=== PATIENT | male | born 1990 | race Caucasian/White ===

== ENCOUNTER 2017-01-19 02:48 | Emergency (ER) | payer SELFPAY ==
[~2017-01-19] VITALS: Ht 190.5 cm; Wt 97.0 kg
[2017-01-19] MEDS ORDERED: KETOROLAC 60MG/2ML VIAL IM ONE (03:30)
[2017-01-19 03:36] VITALS: BP 126/72
== END 2017-01-19 04:34 | disposition home or self-care (01) ==
LOC: ER 03:12
DX: S43.084D Other dislocation of right shoulder joint, subsequent encounter (principal); F12.10 Cannabis abuse, uncomplicated; Z90.49 Acquired absence of other specified parts of digestive tract; X58.XXXD Exposure to other specified factors, subsequent encounter
CPT/HCPCS: 73030; 96372; 99284; J1885; Z7610; L3670